=== PATIENT | male | born 1950 | race Caucasian/White ===

== ENCOUNTER 2017-04-12 10:31 | Observation (INO) | payer MEDICARE, BC ==
[2017-04-12] MEDS ORDERED: Aspirin Low Dose CHEW TAB* 81 MG PO ONE (10:42)
[2017-04-12 11:09] LABS: Hematocrit 45 % (42-52); Hemoglobin 15.5 g/dl (14.0-18.0); Mean Corpuscular HGB Conc 34 g/dl (31-36); Mean Corpuscular Hemoglobin 32 pg (27-31); Mean Corpuscular Volume 94 fL (80-94); Mean Platelet Volume 8 um3 (7.4-10.4); Red Blood Count 4.85 10^6/ul (4.0-5.4); Red Cell Distribution Width 13 % (10.5-15); White Blood Count 6.8 10^3/ul (3.5-10.8)
--- NOTE | 2017-04-12 11:17 | RAD ---
INDICATION: Chest pain. COMPARISON: Comparison is made with a prior chest x-ray study from July 17, 2009. TECHNIQUE: A portable view of the chest was obtained. FINDINGS: Cardiac and mediastinal contours appear to be within normal limits. The lungs are underinflated and clear. No pleural effusion is seen. IMPRESSION: NO EVIDENCE FOR ACUTE DISEASE.
[2017-04-12 11:26] LABS: Troponin I 0.01 ng/mL (<0.04)
[2017-04-12 11:30] LABS: Albumin 4.1 g/dL (3.2-5.2); BUN/Creatinine Ratio 13.5 (8-20); Calcium 9.6 mg/dL (8.6-10.3); EGFR African American 134.9 (>60); EGFR Non-African American 104.9 (>60); Globulin 3.2 g/dL (2-4); Potassium 3.7 mmol/L (3.5-5.0); Total Bilirubin 0.6 mg/dL (0.2-1.0); Total Protein 7.3 g/dL (6.4-8.9)
[2017-04-12] MEDS ORDERED: Acetaminophen TAB* 325 MG PO PRN (12:18)
[2017-04-12] MEDS ORDERED: Ondansetron INJ* 2 MG/ML VIAL IV PRN (12:18)
[2017-04-12] MEDS: Heparin VIAL(*) 5000 UNITS/ML VIAL (FIVE THOUSAND) SUBCUT SCH ×2 (14:31→21:30)
[2017-04-12 18:11] LABS: EGFR Non-African American 106.5 (>60)
[2017-04-12] MEDS: Atenolol TAB* 50 MG PO SCH (20:07)
[2017-04-12] MEDS: OMEGA 3 FATTY ACIDS 1000 MG PO SCH (20:17)
--- NOTE | 2017-04-12 22:53 | HP ---
CC: Dr. Davidson * HISTORY AND PHYSICAL: DATE OF ADMISSION: 04/12/17 PRIMARY CARE PROVIDER: Dr. Davidson. ATTENDING PHYSICIAN WHILE IN THE HOSPITAL: Misti Mckenzie DO * (report dictated by Bijan Andrews NP). CHIEF COMPLAINT: Chest pain. HISTORY OF PRESENTING ILLNESS: Mr. Stephens is a 67-year-old male patient. He carries a history of coronary artery disease, hypertension, hyperlipidemia, he has a history of prostate cancer and melanoma and he also has a strong family history and is a former smoker. He comes into the ER today stating that the last couple of days he has been feeling off. He does not elaborate on this. He states has been feeling fatigue, decreased appetite, is not feeling well, but there has been no reports of fever, cough, chills, nausea, vomiting or any shortness of breath or any calf pain or leg pain or swelling. However, this morning he woke up, he had some chest pressure centered over his chest, radiated around his ribcage and into his back. He states he burped and after burping, he felt better. He states the pain is a pressure, denied having any shortness of breath or nausea associated with this. No diaphoresis associated with this. He states the discomfort was not getting any better, so he decided to come in and being that he has a history of heart disease, he was concerned. He states it felt similar to his previous heart attack. He does state that he mows the lawn and when he walks behind the push mower, he does not get any chest pain or any pain with exertion. He states he has had 2 other episodes of chest discomfort similar to this one, but he was concerned today because it lasted longer. He denied having any recent fever or chills, cough or shortness of breath, but because of his chest discomfort and the fact that he has a significant cardiac history, hospitalist service was asked to evaluate for admission. PAST MEDICAL HISTORY: Significant for: 1. Hypertension. 2. Hyperlipidemia. 3. CAD. 4. Prostate cancer. 5. Melanoma. PAST SURGICAL HISTORY: 1. He has had prostate surgery. 2. He has had heart catheterization with stenting. 3. He has had ORIF of the right wrist. 4. Left foot surgery. 5. Tonsillectomy. ALLERGIES TO MEDICATIONS: Include BICALUTAMIDE, CIPRO, STATINS and SULFA DRUGS. MEDICATIONS: His home medications include: 1. Losartan 100 mg daily. 2. Atenolol 50 mg p.o. twice a day. 3. Multivitamin 1 tablet daily. 4. Welchol 3.75 g p.o. daily. 5. Co-Enzyme Q10 100 mg daily. 6. Norvasc 10 mg daily. 7. Red yeast rice 600 mg p.o. t.i.d. 8. Fish oil 1000 mg p.o. b.i.d. 9. Nitro 0.4 mg sublingual q.5 minutes p.r.n. chest pain x3. 10. Aspirin 81 mg daily. FAMILY HISTORY: Both his parents had coronary artery disease, later in life, his mother I believe was in her 60s and father when he was in his 80s. SOCIAL HISTORY: He is a former smoker. He does drink 1 to 2 beers daily. His surrogate decision maker is his . REVIEW OF SYSTEMS: There is no documented fever. He denied having any significant weight change. There was no double vision. He denies having any ear discharge, was no rhinorrhea. No sore throat. No thyroid enlargement. He denies chest pain currently. There was some per my HPI. There is no shortness of breath. There is no abdominal pain, no nausea, no vomiting. There is no dysuria. There was no frequency. No seizure. There was no loss of consciousness. No pruritus and no skin ulcerations. Review of 14 systems completed, all others negative. PHYSICAL EXAMINATION GENERAL: At this time, Mr. Stephens is a 67-year-old male patient. He appears to be well-nourished, well-developed, he does not appear to be in any acute distress. VITAL SIGNS: Blood pressure 147/75, pulse 52, respirations 18, O2 sat 95%, temperature 98.7. HEENT: Head is atraumatic and normocephalic. Eyes: EOMs are intact. Sclerae were anicteric and not pale. Throat: Oral mucosa appears to be moist. No oropharyngeal erythema. NECK: Supple. LUNGS: Clear to auscultation bilaterally. No wheeze, rales or rhonchi. HEART: Sounds S1, S2. Regular rate and rhythm. No murmurs, rubs or gallops. ABDOMEN: Soft, flat, nontender, bowel sounds present. EXTREMITIES: Pulses were 2+ throughout. He is able to move all 4 extremities with 5/5 strength. NEUROLOGIC: The patient is awake, alert. He is oriented x3, he had no gross focal deficits. SKIN: Intact. LABORATORY DATA: Today revealed a WBC of 6.8, RBC of 4.85, hemoglobin 15.5, hematocrit 45, platelet count of 216. Sodium 136, potassium 3.7, chloride 105, bicarb 25, BUN 10, creatinine 0.74, glucose 109, lactate 1.1. Calcium 9.6, total bilirubin 0.6, AST 22, ALT 19, alk phos 71, troponin 0.01, albumin 4.1. He did have a chest x-ray obtained today which revealed no evidence for acute disease. He had an EKG obtained today which showed normal sinus rhythm at rate of 61. No ST elevations or T-wave inversions. This was reviewed with a previous EKG and is similar. Old medical records were reviewed. ASSESSMENT AND PLAN: Mr. Stephens is a 67-year-old male patient with multiple medical problems, history of coronary artery disease, hypertension, hyperlipidemia, coming into the ER today with complaints of chest discomfort. He will be admitted under observation status for: 1. Chest pain. At this point, the patient has significant risk factors. The patient will undergo a stress test, serial troponins. We will check a D-dimer because he was recently in [place] and took a plane trip about a month ago and he is on aspirin and WelChol and he is on a beta-buddy. 2. Hypertension. Continue meds as prescribed. 3. Hyperlipidemia. Continue statin therapy. Check lipids in the morning. 4. Coronary artery disease. He is on aspirin and beta-buddy and WelChol. 5. Prostate cancer and melanoma, he will follow with his primary. 6. DVT prophylaxis. He is moderate risk. He will be placed on heparin subcu. 7. Code status: He wishes to be a full code. 8. Fluids, electrolytes and nutrition. He can have a heart healthy diet with no caffeine and he will be n.p.o. after midnight for stress test in the morning. TIME SPENT: Time spent on the admission was approximately 60 minutes, greater than half the time was spent [id number] with the patient obtaining my history and physical, other half the time spent going over the plan of care with the patient and implementing the plan of care. I did discuss the plan of care with my attending, Dr. Mckenzie; she is in agreement. BIJAN ANDREWS NP [id number]/[facility] #: [id number] DINA
[2017-04-13 04:48] LABS: Hematocrit 42 % (42-52); Hemoglobin 14.2 g/dl (14.0-18.0); Mean Corpuscular HGB Conc 34 g/dl (31-36); Mean Corpuscular Hemoglobin 32 pg (27-31); Mean Corpuscular Volume 93 fL (80-94); Mean Platelet Volume 8 um3 (7.4-10.4); Red Blood Count 4.46 10^6/ul (4.0-5.4); Red Cell Distribution Width 13 % (10.5-15)
[2017-04-13 04:58] LABS: BUN/Creatinine Ratio 17.5 (8-20); Calcium 8.7 mg/dL (8.6-10.3); EGFR African American 123.3 (>60); EGFR Non-African American 95.8 (>60); HDL Cholesterol 51.2 mg/dL; Potassium 3.8 mmol/L (3.5-5.0)
[2017-04-13] MEDS: Heparin VIAL(*) 5000 UNITS/ML VIAL (FIVE THOUSAND) SUBCUT SCH (05:13)
[2017-04-13] MEDS: OMEGA 3 FATTY ACIDS 1000 MG PO SCH (08:55)
[2017-04-13] MEDS ORDERED: amLODIPine TAB* 5 MG PO SCH (09:00)
[2017-04-13] MEDS ORDERED: COLESEVELAM 625 MG PO SCH (09:00)
[2017-04-13] MEDS ORDERED: Aspirin Low Dose CHEW TAB* 81 MG PO SCH (09:00)
[2017-04-13] MEDS ORDERED: Losartan TAB* 25 MG PO SCH (09:00)
[2017-04-13 09:14] VITALS: BP 139/86
--- NOTE | 2017-04-13 12:34 | RAD ---
Indication: Chest pain. Myocardial perfusion scan was performed utilizing 1 day protocol. Rest myocardial perfusion was performed after intravenous injection of 10.2 mCi of technetium 99 and tetrofosmin. Treadmill stress study was performed and the maximum heart rate achieved was 85% of the maximum predicted value. There is homogeneous distribution of the radiotracer throughout the left ventricle. There is no significant fixed or reversible perfusion defect identified. The ejection fraction at stress is 70%. Evaluation of wall motion demonstrates no focal wall motion abnormality. IMPRESSION: No evidence of reversible change is noted. Normal ejection fraction. ASSESSMENT: Low risk Based on imaging criteria from ACC/AHA 2002 Guideline Update for the Management of Patients With Chronic Stable Angina Table 23. Noninvasive Risk Stratification.
[2017-04-13] MEDS: Atenolol TAB* 50 MG PO SCH (12:41)
--- NOTE | 2017-04-13 13:29 | PN ---
Subjective Date of Service: 04/13/17 Interval History: Mr. Stephens states he is feeling well and eager for discharge to home. He denies chest pain or SOB. Objective Active Medications: Acetaminophen (Tylenol Tab*) 650 mg PO Q4H PRN Amlodipine Besylate (Norvasc Tab*) 10 mg PO DAILY [facility] Aspirin (Aspirin Low Dose Tab*) 81 mg PO DAILY [facility] Atenolol (Tenormin Tab*) 50 mg PO BID [facility] Colesevelam HCl (Welchol(Nf)) 3,750 mg PO DAILY [facility] Fish Oil (Fish Oil (Nf)) 1,000 mg PO BID [facility] Heparin Sodium (Porcine) (Heparin Vial(*)) 5,000 units SUBCUT Q8HR [facility] Losartan Potassium (Cozaar Tab*) 100 mg PO DAILY [facility] Ondansetron HCl (Zofran Inj*) 4 mg IV Q6H PRN Vital Signs 04/12/17 04/12/17 04/12/17 14:00 15:00 15:37 Temperature 97.7 F Pulse Rate 56 Respiratory 17 20 20 Rate Blood Pressure 132/78 (mmHg) O2 Sat by Pulse 97 Oximetry 04/12/17 04/12/17 04/12/17 16:00 17:00 18:00 Temperature Pulse Rate Respiratory 16 16 15 Rate Blood Pressure (mmHg) O2 Sat by Pulse 98 Oximetry 04/12/17 04/12/17 04/12/17 19:00 19:09 20:00 Temperature Pulse Rate Respiratory 17 15 13 Rate Blood Pressure (mmHg) O2 Sat by Pulse Oximetry 04/12/17 04/12/17 04/12/17 20:03 21:00 22:00 Temperature 98.0 F Pulse Rate 56 Respiratory 10 8 14 Rate Blood Pressure 130/75 (mmHg) O2 Sat by Pulse 99 Oximetry 04/12/17 04/12/17 04/13/17 23:00 23:56 00:00 Temperature 98.1 F Pulse Rate 54 Respiratory 2 16 8 Rate Blood Pressure 139/76 (mmHg) O2 Sat by Pulse 98 98 Oximetry 04/13/17 04/13/17 04/13/17 01:00 02:00 04:14 Temperature 98.1 F Pulse Rate 55 Respiratory 14 15 16 Rate Blood Pressure 146/83 (mmHg) O2 Sat by Pulse 97 Oximetry 04/13/17 04/13/17 07:34 08:00 Temperature 98.1 F Pulse Rate 55 Respiratory 16 16 Rate Blood Pressure 139/86 (mmHg) O2 Sat by Pulse 96 97 Oximetry Oxygen Devices in Use Now: None Appearance: Male sitting on edge of bed in NAD Eyes: No Scleral Icterus Ears/Nose/Mouth/Throat: Mucous Membranes Moist Neck: Trachea Midline Respiratory: Symmetrical Chest Expansion and Respiratory Effort, Clear to Auscultation Cardiovascular: NL Sounds; No Murmurs; No JVD, No Edema Abdominal: NL Sounds; No Tenderness; No Distention Lymphatic: No Cervical Adenopathy Extremities: No Edema Skin: No Rash or Ulcers Neurological: Alert and Oriented x 3, NL Muscle Strength and Tone Nutrition: Taking PO's Result Diagrams: 04/13/17 04:25 04/13/17 04:25 Microbiology and Other Data: Microbiology 04/12/17 12:59 Nasal Screen MRSA (PCR)([facility]) - Final Nasal Mrsa Negative Assess/Plan/Problems-Billing Assessment: Mr. Stephens is a 67 yo male with a PMH of CAD with stent who was admitted on with chest pain. - Patient Problems (1) Chest pain Comment: - Trops negative, EKG without ischemia, stress test low risk. - Question anxiety and/or GERD, patient reports increased stress with recent of close friend from a sudden massive PA. Status and Disposition: OBV. Discharge to home.
--- NOTE | 2017-04-14 11:34 | DS ---
CC: Dr. Davidson * [facility] MEDICINE DISCHARGE SUMMARY: DATE OF ADMISSION: 04/12/17 DATE OF DISCHARGE: 04/13/17 ATTENDING PHYSICIAN: James Pina MD (dictation provided by Jacquie Salguero NP) PRIMARY DIAGNOSIS: Chest pain. SECONDARY DIAGNOSES: 1. Hypertension. 2. Hyperlipidemia. 3. History of coronary artery disease, with stent. 4. Prostate cancer. 5. Melanoma. PAST SURGICAL HISTORY: 1. History of prostate surgery. 2. Heart catheterization with stenting. 3. ORIF of the right wrist. 4. Left foot surgery. 5. Tonsillectomy. MEDICATIONS AT THE TIME OF DISCHARGE: 1. Losartan 100 mg p.o. daily. 2. Atenolol 50 mg p.o. twice daily. 3. Multivitamin 1 tab daily. 4. Welchol 3.75 g p.o. daily. 5. Coenzyme Q10 100 mg daily. 6. Norvasc 10 mg daily. 7. Red yeast rice 600 mg p.o. t.i.d. 8. Fish oil 1000 mg p.o. b.i.d. 9. Nitro sublingual as needed. 10. Aspirin 81 mg p.o. daily. HOSPITAL COURSE: Mr. Stephens is a 67-year-old male with a past medical history of coronary artery disease, hypertension, hyperlipidemia who presented to the hospital on 04/12/17 with concern for chest pain. Please see the dictated H and P from Bijan Andrews NP for complete details. In brief, the patient stated he felt pain while at rest. In the emergency room, he had troponin, which was 0 and EKG which showed no evidence of ischemia. Mr. Stephens was admitted to the hospital. His further troponins were also negative. He had no further chest pain. He went on for a stress test today, which is read as low risk. Mr. Stephens was medically stable for discharge to home. I suspect that his chest discomfort is either related to GERD, which he endorses or perhaps related to anxiety. He reports having a very close friend who just last week from sudden cardiac and that this has had him much more worry about his own health. Mr. Stephens is medically stable for discharge to home. DISPOSITION: Home. DIET: Low fat, low salt. ACTIVITY: As tolerated. FOLLOWUP PLANS: Please follow up with Dr. Davidson regarding management of hypertension, hyperlipidemia and risk factors for CAD. TIME SPENT: Approximately 60 minutes was spent in the discharge of this patient , more than half of the time was spent with the patient at the bedside reviewing the events leading up to this hospitalization, performing the physical examination, and reviewing my plan of care. JACQUIE SALGUERO NP [id number]/[facility] #: [id number] DINA
--- NOTE | 2017-04-14 12:52 | ED ---
Shruthi Zamudio Edward, scribed for Elham Burgos MD on 04/12/17 at 1052 . HPI Chest Pain - HPI Summary HPI Summary: 67 y/o male presents to ED c/o CP starting at around 08:00 this morning. The pain is rated 5/10 initially and resolved now. The patient took a NTG. The pain radiated to both arms and to the back. Denies SOB, pain in arms, diaphoresis, cough, fever and chills. Patient is retired and lives with his . PMHx HTN, HLD, no DM. SHx stent. No FHx HTN. Daily EtOH use. - History of Current Complaint Chief Complaint: EDChestPainROMI Time Seen by Provider: 04/12/17 10:41 Hx Obtained From: Patient Onset/Duration: Started Hours Ago, Resolved Initial Severity: Moderate Current Severity: None Pain Intensity: 0 Chest Pain Radiates: Yes Chest Pain Radiates To:: Back, Arm - Both Associated Signs and Symptoms: Positive: Chest Pain, Other: - No pain in arms. Negative: Shortness of Breath, Fever, Chills, Cough - Allergy/Home Medications Allergies/Adverse Reactions: Allergies Allergy/AdvReac Type Severity Reaction Status Date / Time Bicalutamide Allergy Altered Verified 04/12/17 10:37 Mental Status Ciprofloxacin [From Cipro] Allergy Rash Verified 12/05/13 10:45 Statins Allergy Pain Verified 12/05/13 10:46 Sulfamethoxazole Allergy Rash Verified 12/05/13 10:46 w/Trimethoprim [From Bactrim] Home Medications: Home Medications Aspirin 81 MG TAB 81 mg PO DAILY 04/12/17 [History Confirmed 04/12/17] Losartan Potassium 100 mg PO DAILY 04/12/17 [History Confirmed 04/12/17] PMH/Surg Hx/FS Hx/Imm Hx Previously Healthy: No Endocrine/Hematology History: Denies: Hx Diabetes Cardiovascular History: Reports: Hx Hypertension - Cancer History Cancer Type, Location and Year: PROSTATE - Surgical History Surgery Procedure, Year, and Place: prostatectomy/fx left great toe /left wrist/ tonsils Infectious Disease History: No Infectious Disease History: Denies: Traveled Outside the [place] in Last 30 Days - Family History Known Family History: Positive: Cardiac Disease - CAD - Social History Alcohol Use: Occasionally Substance Use Type: Reports: None Smoking Status (MU): Former Smoker Review of Systems Constitutional: Negative Negative: Fever, Chills, Skin Diaphoresis Eyes: Negative ENT: Negative Positive: Chest Pain Respiratory: Negative Negative: Shortness Of Breath, Cough Gastrointestinal: Negative Genitourinary: Negative Musculoskeletal: Negative Skin: Negative Neurological: Negative Psychological: Normal All Other Systems Reviewed And Are Negative: Yes Physical Exam Triage Information Reviewed: Yes Vital Signs On Initial Exam: Initial Vitals Temp Pulse Resp BP Pulse Ox 98.7 F 58 16 157/80 97 04/12/17 10:38 04/12/17 10:38 04/12/17 10:38 04/12/17 10:38 04/12/17 10:38 Vital Signs Reviewed: Yes Appearance: Positive: Well-Appearing, No Pain Distress Skin: Positive: Warm, Skin Color Reflects Adequate Perfusion, Dry Eyes: Positive: EOMI, DOC ENT: Positive: Pharynx normal, TMs normal Neck: Positive: Supple, Nontender Respiratory/Lung Sounds: Positive: Clear to Auscultation, Breath Sounds Present Cardiovascular: Positive: RRR, Other - No gallop. Negative: Murmur, Rub Abdomen Description: Positive: Nontender, Soft, Other: - No rebound. Negative: Distended, Guarding Bowel Sounds: Positive: Present Musculoskeletal: Positive: Strength/ROM Intact. Negative: Edema Left, Edema Right Neurological: Positive: Sensory/Motor Intact, Alert, Oriented to Person Place, Time, CN Intact II-III Psychiatric: Positive: Affect/Mood Appropriate - [place] Coma Scale Coma Scale Total: 15 Diagnostics - Vital Signs Vital Signs Temp Pulse Resp BP Pulse Ox 04/12/17 10:43 96 04/12/17 10:41 57 10 96 04/12/17 10:39 157/80 04/12/17 10:38 98.7 F 58 16 157/80 97 - Laboratory Lab Results: Lab Results 04/12/17 04/12/17 04/12/17 Range/Units 10:55 10:55 10:55 WBC 6.8 (3.5-10.8) 10^3/ul RBC 4.85 (4.0-5.4) 10^6/ul Hgb 15.5 (14.0-18.0) g/dl Hct 45 (42-52) % MCV 94 (80-94) fL MCH 32 H (27-31) pg MCHC 34 (31-36) g/dl RDW 13 (10.5-15) % Plt Count 216 (150-450) 10^3/ul MPV 8 (7.4-10.4) um3 Neut % (Auto) 73.1 (38-83) % Lymph % (Auto) 12.3 L (25-47) % Finney % (Auto) 10.9 H (1-9) % Eos % (Auto) 2.3 (0-6) % Baso % (Auto) 1.4 (0-2) % Absolute Neuts (auto) 5.0 (1.5-7.7) 10^3/ul Absolute Lymphs (auto) 0.8 L (1.0-4.8) 10^3/ul Absolute Monos (auto) 0.7 (0-0.8) 10^3/ul Absolute Eos (auto) 0.2 (0-0.6) 10^3/ul Absolute Basos (auto) 0.1 (0-0.2) 10^3/ul Absolute Nucleated RBC 0 10^3/ul Nucleated RBC % 0 D-Dimer, Quantitative (Less Than 230) ng/mL Sodium 136 (133-145) mmol/L Potassium 3.7 (3.5-5.0) mmol/L Chloride 105 (101-111) mmol/L Carbon Dioxide 25 (22-32) mmol/L Anion Gap 6 (2-11) mmol/L BUN 10 (6-24) mg/dL Creatinine 0.74 (0.67-1.17) mg/dL Est GFR ( Amer) 134.9 (>60) Est GFR (Non-Af Amer) 104.9 (>60) BUN/Creatinine Ratio 13.5 (8-20) Glucose 109 H (70-100) mg/dL Lactic Acid 1.1 (0.5-2.0) mmol/L Calcium 9.6 (8.6-10.3) mg/dL Total Bilirubin 0.60 (0.2-1.0) mg/dL AST 22 (13-39) U/L ALT 19 (7-52) U/L Alkaline Phosphatase 71 (34-104) U/L Troponin I 0.01 (<0.04) ng/mL Total Protein 7.3 (6.4-8.9) g/dL Albumin 4.1 (3.2-5.2) g/dL Globulin 3.2 (2-4) g/dL Albumin/Globulin Ratio 1.3 (1-3) 04/12/17 Range/Units 10:55 WBC (3.5-10.8) 10^3/ul RBC (4.0-5.4) 10^6/ul Hgb (14.0-18.0) g/dl Hct (42-52) % MCV (80-94) fL MCH (27-31) pg MCHC (31-36) g/dl RDW (10.5-15) % Plt Count (150-450) 10^3/ul MPV (7.4-10.4) um3 Neut % (Auto) (38-83) % Lymph % (Auto) (25-47) % Finney % (Auto) (1-9) % Eos % (Auto) (0-6) % Baso % (Auto) (0-2) % Absolute Neuts (auto) (1.5-7.7) 10^3/ul Absolute Lymphs (auto) (1.0-4.8) 10^3/ul Absolute Monos (auto) (0-0.8) 10^3/ul Absolute Eos (auto) (0-0.6) 10^3/ul Absolute Basos (auto) (0-0.2) 10^3/ul Absolute Nucleated RBC 10^3/ul Nucleated RBC % D-Dimer, Quantitative < 200 (Less Than 230) ng/mL Sodium (133-145) mmol/L Potassium (3.5-5.0) mmol/L Chloride (101-111) mmol/L Carbon Dioxide (22-32) mmol/L Anion Gap (2-11) mmol/L BUN (6-24) mg/dL Creatinine (0.67-1.17) mg/dL Est GFR ( Amer) (>60) Est GFR (Non-Af Amer) (>60) BUN/Creatinine Ratio (8-20) Glucose (70-100) mg/dL Lactic Acid (0.5-2.0) mmol/L Calcium (8.6-10.3) mg/dL Total Bilirubin (0.2-1.0) mg/dL AST (13-39) U/L ALT (7-52) U/L Alkaline Phosphatase (34-104) U/L Troponin I (<0.04) ng/mL Total Protein (6.4-8.9) g/dL Albumin (3.2-5.2) g/dL Globulin (2-4) g/dL Albumin/Globulin Ratio (1-3) Result Diagrams: 04/13/17 04:25 04/13/17 04:25 Lab Statement: Any lab studies that have been ordered have been reviewed, and results considered in the medical decision making process. - Radiology CXR Xray Interpretation: No Acute Changes - NO EVIDENCE FOR ACUTE DISEASE Radiology Interpretation Completed By: Radiologist - EKG 1 EKG Rhythm: Sinus Bradycardia - @ [address] Segment: Normal EKG Interpretation: 10:45 EKG Comparison: No Significant Change - 07/26/15 Chest Pain Course/Dx - Course Course Of Treatment: case presented to Dr. Mckenzie for an obv admit - Diagnoses Provider Diagnoses: Chest pain - Provider Notifications Discussed Care Of Patient With: Misti Mckenzie Time Discussed With Above Provider: 11:15 Instructed by Provider To: Admit As Inpatient Discharge - Discharge Plan Condition: Stable Disposition: ADMITTED TO [facility] The documentation as recorded by the Shruthi rosado Edward accurately reflects the service I personally performed and the decisions made by , Elham Burgos MD.
== END 2017-04-13 13:48 | disposition home or self-care (01) ==
LOC: ED 10:31 → MEDTELE 11:18
PROVIDERS: ADMIT Hospitalist; ATTEND Hospitalist
DX: R07.9 Chest pain, unspecified (principal); I10 Essential (primary) hypertension; I25.10 Atherosclerotic heart disease of native coronary artery without angina pectoris; E78.5 Hyperlipidemia, unspecified; Z85.46 Personal history of malignant neoplasm of prostate; Z85.820 Personal history of malignant melanoma of skin; Z87.891 Personal history of nicotine dependence; I25.2 Old myocardial infarction; Z79.899 Other long term (current) drug therapy
CPT/HCPCS: 36415; 71010; 78452; 80048; 80053; 80061; 82565; 83036; 83605; 84484; 84520; 85025; 85379; 85610; 85730; 87641; 93005; 93017; 96374; 99284; A9270-GY; A9502; G0378; J1644